=== PATIENT | male | born 1985 | race African-American/Black ===

== ENCOUNTER 2019-04-28 23:04 | Emergency (ER) | payer OTHER ==
[~2019-04-28] VITALS: Ht 182.9 cm; Wt 68.0 kg
[~2019-04-28 23:04] MED LIST: HYDROCODON-ACE1 EA15 ORAL; IBUPROFEN600 MG PO; KEFLEX500 MG PO; NKM; POLYTRIM OP SOL10 ML OPHTHALM; SEPTRA DS TABL1 EACH PO
--- NOTE | 2019-04-28 23:08 | NUR ---
ED Nurse Note: Patient presents with complaints of generalized joint pain involving shoulders, wrists, knees, and ankles.
[2019-04-28 23:21] VITALS: BP 115/78
--- NOTE | 2019-04-28 23:25 | Emergency Room Report ---
History of Present Illness General Chief Complaint: Pain Source: Patient Present Illness HPI 33-year-old male presents with diffuse joint pain that comes and goes left shoulder right shoulder, knees, wrists that come and go aching in nature, denies any aggravating alleviating factors, no nausea no vomiting, no fever no chills, no dysuria, no penile discharge, patient states he does not know exactly what is causing this, patient presents for evaluation of ER Allergies: Coded Allergies: No Known Allergies (Unverified , 09/05/12) Patient History Past Medical History: see triage record Social History: Reports: drug use - Marijuana Reviewed Nursing Documentation: PMH: Agreed; PSxH: Agreed Nursing Documentation-PMH Past Medical History: No Stated History Hx Cardiac Problems: No Hx Cancer: No Hx Gastrointestinal Problems: No Hx Neurological Problems: No Review of Systems Musculoskeletal: Reports: joint pain All Other Systems: negative except mentioned in HPI Physical Exam Vital Signs Date Time Temp Pulse Resp B/P (MAP) Pulse Ox O2 Delivery O2 Flow Rate FiO2 04/28/19 23:07 98.2 69 22 115/78 (90) 98 Room Air Sp02 EP Interpretation: reviewed, normal General Appearance: well appearing, no apparent distress, alert Head: normocephalic, atraumatic Eyes: bilateral eye PERRL, bilateral eye EOMI ENT: uvula midline, moist mucus membranes Neck: supple, thyroid normal, supple/symm/no masses Respiratory: lungs clear, no respiratory distress, no retraction, no accessory muscle use Cardiovascular #1: normal peripheral pulses, regular rate, rhythm, no edema, no gallop, no murmur Gastrointestinal: non tender, soft, no guarding, no rebound Musculoskeletal: normal inspection Neurologic: alert, oriented x3 Psychiatric: mood/affect normal Skin: no rash, warm/dry Medical Decision Making Diagnostic Impression: Primary Impression: Joint pain ER Course 33-year-old male presents with polyarthropathy, no clear indication as to the cause, no recent viral illness, no penile discharge, counseled patient to follow -up with a primary care doctor, patient also counseled to get in HIV, and STD screening, return precautions discussed follow-up with PCP. Last Vital Signs Date Time Temp Pulse Resp B/P (MAP) Pulse Ox O2 Delivery O2 Flow Rate FiO2 04/28/19 23:07 98.2 69 22 115/78 (90) 98 Room Air Disposition: HOME, SELF-CARE Condition: Stable Referrals: [facility] Patient Instructions: Arthritis, [id number], Joint Pain, [id number], Reactive Arthritis Additional Instructions: The patient was provided with discharge instructions, notified to follow-up with a primary care doctor and or specialist in the next 24-48 hours, and to return to the ED if they have worsening of their symptoms. Please note that this report is being documented using [employer] technology. This can lead to erroneous entry secondary to incorrect interpretation by the dictating instrument. Please go to the health clinic and have STD testing, follow-up with a PCP Juan Corral MD Apr 28, 2019 23:24
--- NOTE | 2019-04-28 23:25 | NUR ---
ED Nurse Note: Patient asked to speak to ERMd again. ERMD informed and is at bedside.
--- NOTE | 2019-04-28 23:34 | NUR ---
ED Nurse Note: Patient verbalized understanding of discharge instructions. ID band removed. Patient escorted to discharge desk. Patient departed with all belongings.
[2019-04-28 23:36] VITALS: BP 115/78
== END 2019-04-28 23:50 | disposition home or self-care (01) ==
LOC: EMR 23:50
DX: M25.512 Pain in left shoulder (principal); M25.511 Pain in right shoulder; M25.562 Pain in left knee; M25.561 Pain in right knee; M25.532 Pain in left wrist; M25.531 Pain in right wrist
CPT/HCPCS: 99281